=== PATIENT | male | born 1955 | race Caucasian/White ===

== ENCOUNTER → 2023-11-23 07:06 | Outpatient (REF) | payer BC, SELFPAY ==
[2023-11-23 08:25] LABS: Blood Urea Nitrogen 12 mg/dl (9-20); Calcium 8.4 mg/dl (8.4-10.2); Carbon Dioxide 26 mmol/L (22-30); Chloride 109 mmol/L (98-107); Glucose 95 mg/dl (70-99); Potassium 4.1 mmol/L (3.5-5.1); Sodium 141 mmol/L (135-145); eGFR > 60.00
== END ==
LOC: REG 07:06
PROVIDERS: ATTENDING PHYSICIAN Nurse Practitioner
DX: R10.12 Left upper quadrant pain (principal); R10.32 Left lower quadrant pain
CPT/HCPCS: 36415; 80048

== ENCOUNTER → 2023-11-26 14:02 | Outpatient (REF) | payer BC, SELFPAY | LOC: RAD 14:02 | PROVIDERS: ATTENDING PHYSICIAN Nurse Practitioner | DX: R10.12 Left upper quadrant pain (principal); R63.4 Abnormal weight loss | CPT/HCPCS: 74177; Q9967 ==

== ENCOUNTER → 2023-12-20 08:06 | Outpatient (REF) | payer BC, SELFPAY ==
[2023-12-20 10:24] LABS: ALT (SGPT) 29 U/L (0-50); AST (SGOT) 32 U/L (17-59); Albumin 4.2 g/dl (3.5-5.0); Alkaline Phosphatase 82 U/L (38-126); Amylase 147 U/L (30-110); Blood Urea Nitrogen 15 mg/dl (9-20); Carbon Dioxide 28 mmol/L (22-30); Chloride 103 mmol/L (98-107); Glucose 93 mg/dl (70-99); Lipase 172 U/L (23-300); Sodium 139 mmol/L (135-145); Total Bilirubin 0.4 mg/dl (0.2-1.3); Total Protein 6.6 g/dl (6.3-8.2); eGFR > 60.00
[2023-12-20 12:54] LABS: % Eosinophils 1.8 % (0-6); % Immature Granulocytes 0.3 % (0-0.5); % Lymphocytes 25.4 % (20.5-51.1); % Monocytes 9.8 % (1.7-9.3); % Neutrophils 61.7 % (42.2-75.2); Absolute Basophils 0.1 10^3/uL (0-0.2); Absolute Eosinophils 0.1 10^3/uL (0-0.7); Absolute Lymphocytes 1.8 10^3/uL (1.2-3.4); Absolute Monocytes 0.7 10^3/uL (0.1-0.6); Absolute Neutrophils 4.5 10^3/uL (1.4-6.5); Hematocrit 41.2 % (39.0-52.0); Hemoglobin 14.1 g/dL (13.0-18.0); Mean Corp Hgb Conc. 34.2 g/dL (33.0-37.0); Mean Corpuscular Hgb 29.5 pg (27.0-31.0); Mean Corpuscular Volume 86.2 fL (80.0-94.0); Mean Platelet Volume 10.9 fL (7.4-10.4); Nucleated Red Blood Cells % 0 % (-); Platelet Count 253 10^3/uL (130-400); Red Blood Cell Count 4.78 10^6/uL (4.70-6.10); Red Cell Dist. Width 13.8 % (11.5-14.5); White Blood Cell Count 7.3 10^3/uL (4.8-10.8)
== END ==
LOC: REG 08:06
PROVIDERS: ATTENDING PHYSICIAN Internal Medicine Gastroenterology; FAMILY PHYSICIAN Internal Medicine
DX: R68.81 Early satiety (principal); R10.32 Left lower quadrant pain
CPT/HCPCS: 36415; 80053; 82150; 83690; 85025

== ENCOUNTER → 2023-12-29 06:30 | Day surgery (SDC) | payer BC, SELFPAY | LOC: GI 06:30 | PROVIDERS: ATTENDING PHYSICIAN Internal Medicine Gastroenterology | DX: R76.8 Other specified abnormal immunological findings in serum (principal); R68.81 Early satiety; R63.4 Abnormal weight loss; R11.0 Nausea; K44.9 Diaphragmatic hernia without obstruction or gangrene; K31.89 Other diseases of stomach and duodenum; K29.50 Unspecified chronic gastritis without bleeding; K90.0 Celiac disease | CPT/HCPCS: 43239; 88305; 88342 ==

== ENCOUNTER → 2024-06-08 08:42 | Outpatient (REF) | payer BC, SELFPAY ==
[2024-06-09 14:58] LABS: tTG IgA Antibody 17.2 EU/ml (0-19); tTG IgG Antibody 29.9 EU/ml (0-19)
== END ==
LOC: REG 08:42
PROVIDERS: ATTENDING PHYSICIAN Internal Medicine Gastroenterology; FAMILY PHYSICIAN Internal Medicine
DX: K90.0 Celiac disease (principal)
CPT/HCPCS: 36415; 83516